=== PATIENT | female | born 1985 | race Caucasian/White ===

== ENCOUNTER 2021-02-16 11:25 | Emergency (ER) | payer MEDICAID ==
[~2021-02-16] VITALS: Ht 177.8 cm; Wt 80.6 kg
[2021-02-16 11:41] VITALS: BP 117/76
--- NOTE | 2021-02-16 11:51 | NUR ---
FIRST CONTACT: L lower tooth pain x2.5 weeks, minimal facial swelling. Social circumstances unable to see dentist. PT TO ROOM WITH STEADY GAIT. ATTACHED TO MONITORS. VSS. ARENAS.
[2021-02-16] MEDS ORDERED: LIDOCAINE-MPF 1%, 5ML ONE (12:13)
[2021-02-16] MEDS ORDERED: LIDOCAINE-MPF 1%, 5ML INFIL ONE (12:30)
--- NOTE | 2021-02-16 12:39 | NUR ---
Patient given discharge instructions and they have confirmed that they understand the instructions. Patient ambulatory with steady gait. NAD, all questions answered appropriately, denies additional needs at this time. No personal belongings left in room after discharge.
== END 2021-02-16 12:40 | disposition home or self-care (01) ==
LOC: ED 12:37
DX: K02.9 Dental caries, unspecified (principal); Z87.891 Personal history of nicotine dependence
CPT/HCPCS: 64400; 99284

== ENCOUNTER 2021-03-12 15:41 | Emergency (ER) | payer MEDICAID ==
[~2021-03-12] VITALS: Ht 177.8 cm; Wt 82.1 kg
[2021-03-12 16:11] VITALS: BP 106/65
[2021-03-12] MEDS ORDERED: DIPH,PERTUSS(ACELL),TET VAC/PF 0.5 ML IM-VACC ONE ×2 (16:30→19:12)
[2021-03-12] MEDS ORDERED: LIDOCAINE-MPF 1%, 5ML INFIL ONE (16:30)
--- NOTE | 2021-03-12 19:08 | NUR ---
TO ROOM FROM LOBBY. NAD.
[2021-03-12] MEDS ORDERED: LIDOCAINE-MPF 2% ,5ML ONE (19:11)
[2021-03-12] MEDS ORDERED: LIDOCAINE-MPF 1%, 5ML ONE (19:12)
--- NOTE | 2021-03-12 19:45 | NUR ---
PTS LAC TO FINGER WAS CLOSED AND SECURED WITH DERMABOND PLACED BY . PT TOLERATED WELL AND EDGES APPROXIMATED AND NO BLEEDING. F/U AND D/C INSTRUCTIONS GIVEN TO PT AND SHE V/U. PT AMBULATED TO DISCHARGE DESK.
== END 2021-03-12 19:47 | disposition home or self-care (01) ==
LOC: ED 19:04
DX: S61.211A Laceration without foreign body of left index finger without damage to nail, initial encounter (principal); W26.8XXA Contact with other sharp object(s), not elsewhere classified, initial encounter; Y93.89 Activity, other specified; Y92.009 Unspecified place in unspecified non-institutional (private) residence as the place of occurrence of the external cause; Y99.8 Other external cause status
CPT/HCPCS: 12001; 90471; 90715